=== PATIENT | female | born 1990 | race Two or more races ===

== ENCOUNTER 2021-05-13 19:02 | Emergency (ER) | payer OTHER ==
[~2021-05-13] VITALS: Ht 170.2 cm; Wt 70.3 kg
[2021-05-13] MEDS ORDERED: HYDROMORPHONE 1 MG/1 ML DISP.SYRIN IV ONE (19:15)
[2021-05-13] MEDS ORDERED: METOCLOPRAMIDE HCL 10 MG/2 ML VIAL IV ONE (19:15)
[2021-05-13] MEDS ORDERED: diphenhydrAMINE 50 MG/1 ML VIAL IV ONE (19:15)
--- NOTE | 2021-05-13 19:19 | NUR ---
Pt BIB [facility] 839 d/t d/v/ headache/abd discomfort x 1 day. A/O x4, no SOB or labored breathing.
--- NOTE | 2021-05-13 19:25 | NUR ---
Huang Aviles at bedside, MSE in progress.
[2021-05-13] MEDS ORDERED: diphenhydrAMINE 50 MG/1 ML VIAL ONE (19:50)
[2021-05-13] MEDS ORDERED: METOCLOPRAMIDE HCL 10 MG/2 ML VIAL ONE (19:50)
[2021-05-13] MEDS ORDERED: HYDROMORPHONE 1 MG/1 ML DISP.SYRIN ONE (19:50)
[2021-05-13] MEDS ORDERED: HYDR-4209 PO (21:15)
[2021-05-13] MEDS ORDERED: ONDA4TAB5 PO (21:15)
--- NOTE | 2021-05-13 21:30 | NUR ---
Patient discharged to home in stable condition. No SOB or labored breathing, afebrile. No c/o n/v/ dizziness or LYNN. Written and verbal after care instructions given. Patient verbalizes understanding of instructions. Stressed follow up or return to ER for worsening s/s. Steady gait.
[2021-05-13 21:31] VITALS: BP 130/84
== END 2021-05-13 21:30 | disposition home or self-care (01) ==
LOC: ER 19:04
DX: R51.9 Headache, unspecified (principal); R11.2 Nausea with vomiting, unspecified; F17.210 Nicotine dependence, cigarettes, uncomplicated
CPT/HCPCS: 96374; 96375; 99284; 99406; J1170; J1200; J2765; A4663